=== PATIENT | female | born 1975 | race Caucasian/White ===

== ENCOUNTER 2024-11-09 08:10 | Outpatient (CLI) | payer OTHER, SELFPAY ==
--- NOTE | ~2024-11-09 | MM_ITS ---
EXAMINATION: MM screening yomaira BI w michelle HISTORY: 49-year-old woman presents for screening baseline mammography. TECHNIQUE: Craniocaudal and mediolateral oblique 3-D tomosynthesis images were obtained and synthetic 2-D images were generated. CAD analysis was submitted and interpreted. COMPARISON: None. BREAST PARENCHYMAL COMPOSITION: Not Dense. The breasts are almost entirely fatty. FINDINGS: Punctate calcifications are detected bilaterally, morphologically benign in appearance. 6.7 mm well-circumscribed asymmetry within the retroareolar position of the left breast approximately 2 cm from the nipple for which spot compression followed by a focused ultrasound is recommended. Otherwise unremarkable parenchymal pattern without suspicious microcalcifications, architectural dist ortion, additional discrete masses or additional significant asymmetry. IMPRESSION: 6.7 mm well-circumscribed asymmetry within the retroareolar position of the left breast approximately 2 cm from the nipple for which spot compression followed by a focused ultrasound is recommended. BI-RADS Category 0: Incomplete: Needs additional imaging evaluation. Reviewed, dictated and finalized at location A. IMPRESSION: 6.7 mm well-circumscribed asymmetry within the retroareolar position of the lef t breast approximately 2 cm from the nipple for which spot compression followed by a focused ultrasound is recommended. BI-RADS Category 0: Incomplete: Needs additional imaging evaluation.
== END 2024-11-09 08:11 | disposition home or self-care (01) ==
LOC: MICIMG 08:13
PROVIDERS: PCP Nurse Practitioner Family; Visit Provider Nurse Practitioner Family
DX: Z12.31 Encounter for screening mammogram for malignant neoplasm of breast (principal); R92.8 Other abnormal and inconclusive findings on diagnostic imaging of breast
CPT/HCPCS: 77063; 77067

== ENCOUNTER 2024-12-06 08:52 | Outpatient (CLI) | payer OTHER, SELFPAY ==
--- NOTE | ~2024-12-06 | MMUS_ITS ---
EXAMINATION: MM diagnostic yomaira LT w michelle, US breast LT limited HISTORY: Follow-up left subareolar mass TECHNIQUE: Additional 3-D tomosynthesis images of the left breast were performed and synthetic 2-D im ages were generated. CAD analysis was submitted and interpreted. High resolution Limited left breast ultrasound was performed. COMPARISON: No prior studies for comparison. BREAST PARENCHYMAL COMPOSITION: Not dense: There are scattered areas of fibroglandular density. FINDINGS: MAMMOGRAPHIC FINDINGS: There is a persistent subareolar mass of the left breast, best seen on spot CC view. There are no lana picious calcifications or architectural distortion. ULTRASOUND: Limited left breast ultrasound: There is a subareolar cyst measuring 6 mm. No suspicious masses to arceo ggest malignancy. IMPRESSION: 1. No evidence for malignancy in the left breast. Benign finding. 2. Routine yearly screening mammogram and regular clinical breast examination are recommended. BI-RADS Category 2: Benign finding(s). Reviewed, dictated and finalized at location B. IMPRESSION: 1. No evidence for malignancy in the left breast. Benign finding. 2. Routine yearly screening mammogram and regular clinical breast examination a re recommended. BI-RADS Category 2: Benign finding(s).
== END 2024-12-06 08:53 | disposition home or self-care (01) ==
LOC: MICIMG 08:53
PROVIDERS: PCP Nurse Practitioner Family; Visit Provider Nurse Practitioner Family
DX: R92.8 Other abnormal and inconclusive findings on diagnostic imaging of breast (principal)
CPT/HCPCS: 76642; 77061; 77065; G0279